=== PATIENT | male | born 1985 | race Caucasian/White ===

== ENCOUNTER 2024-08-12 18:36 | Emergency (ER) | payer BC ==
[2024-08-12] MEDS: Lidocaine 2% 5 ML SDV INJECT ONE (19:49)
[2024-08-12] MEDS: Lidocaine 2% 20 ML MDV ONE (19:49)
== END 2024-08-12 20:17 | disposition home or self-care (01) ==
LOC: JD.ED 18:36
DX: S01.21XA Laceration without foreign body of nose, initial encounter (principal); Z88.2 Allergy status to sulfonamides; W21.07XA Struck by softball, initial encounter; Y93.89 Activity, other specified
CPT/HCPCS: 12011; 99282; 99283; J2003